=== PATIENT | female | born 1995 | race American Indian/Alaskan Native ===

== ENCOUNTER 2018-12-31 18:50 | Outpatient (CLI) | payer MEDICAID ==
[2018-12-31 19:04] VITALS: BP 100/58
[2018-12-31] MEDS ORDERED: LACTATED RINGERS 500 ML IV ONE (19:13)
[2018-12-31 20:56] LABS: Bilirubin,Urine NEG (Negative); Blood,Urine SM (Negative); Color,Urine Yellow (Yellow); Mucus,Urine 3+ /HPF; Urobilinogen,Urine < 2.0 mg/dL (<2.0)
[2018-12-31 21:23] LABS: Basophils # (Auto) 0.1 K/mm3 (0.0-0.1); Basophils % (Auto) 0.7 % (0.0-1.8); Eosinophils # (Auto) 0.1 K/mm3 (0.0-0.4); Eosinophils % (Auto) 0.5 % (0.0-4.3); Hematocrit 34.3 % (30.3-42.9); Hemoglobin 11.4 gm/dl (10.1-14.3); Lymphocytes # (Auto) 2.7 K/mm3 (1.2-5.4); Lymphocytes % (Auto) 24.7 % (13.4-35.0); Mean Corpuscular HGB Conc 33 % (30-34); Mean Corpuscular Volume 89 fl (79-97); Monocytes # (Auto) 0.8 K/mm3 (0.0-0.8); Platelet Count 249 K/mm3 (140-440); Red Blood Count 3.87 M/mm3 (3.65-5.03); Red Cell Distribution Width 14.1 % (13.2-15.2)
[2018-12-31] MEDS ORDERED: REGLAN IV ONE (21:44)
[2018-12-31 21:56] LABS: Albumin 3.8 g/dL (3.9-5); BUN/Creatinine Ratio 18; Blood Urea Nitrogen 9 mg/dL (7-17); Calcium 9.5 mg/dL (8.4-10.2); Hemolysis Index 142
[2018-12-31 22:40] LABS: Alanine Aminotransferase 7 units/L (7-56)
== END 2018-12-31 22:24 | disposition home or self-care (01) ==
LOC: TRG 18:50
PROVIDERS: ATTEND Obstetrics & Gynecology
DX: O21.2 Late vomiting of pregnancy (principal); Z3A.34 34 weeks gestation of pregnancy
CPT/HCPCS: 36415; 59025; 80053; 81001; 85025; 87086; 96374; J2765; J7120; 96360; 96365

== ENCOUNTER 2019-12-16 10:48 | Emergency (ER) | payer MEDICAID ==
[2019-12-16 11:08] VITALS: BP 124/69
--- NOTE | 2019-12-16 11:52 | XRay Report ---
Left ankle 4 views INDICATION: Left ankle pain following injury IMPRESSION: No acute fracture or subluxation of the left ankle is identified. Signer Name: Gm Ortiz MD Signed: 12/16/2019 11:48 AM Workstation Name: [id number]
--- NOTE | 2019-12-16 13:01 | Emergency Department Report ---
ED Extremity Problem HPI - General Chief complaint: Extremity Injury, Lower Stated complaint: HURT ANKLE Time Seen by Provider: 12/16/19 12:15 Source: patient Mode of arrival: Ambulatory Limitations: No Limitations - History of Present Illness Initial comments: This is a 23-year-old female with no prior medical history who presents the ED complaining of left ankle pain status post getting out of the car the wrong way and twisting it. Patient states this incident happened yesterday. She was getting out of the car and and twisted her left ankle the wrong way. Patient states she has had pain and swelling to the left ankle. MD Complaint: joint swelling, joint paint -: Last night Location: left, lower extremity (ankle) History of Same: No -: Yes arthralgia Radiation: none Quality: aching, constant Improves with: immobilization - Related Data Previous Rx's Medication Instructions Recorded Last Taken Type Promethazine [Phenergan] 25 mg PO Q6H PRN #20 tablet 10/10/13 Unknown Rx Naproxen [Naprosyn TAB] 500 mg PO BID #30 tablet 12/16/19 Unknown Rx Allergies Allergy/AdvReac Type Severity Reaction Status Date / Time No Known Allergies Allergy Verified 09/15/18 18:44 ED Review of Systems ROS: Stated complaint: HURT ANKLE Other details as noted in HPI Comment: All other systems reviewed and negative ED Past Medical Hx - Past Medical History Hx Hypertension: No Hx Diabetes: No Hx Deep Vein Thrombosis: No Hx Renal Disease: No Hx Sickle Cell Disease: No Hx Seizures: No Hx Asthma: No Hx HIV: No Additional medical history: vaginal [id number] - Social History Smoking Status: Never Smoker - Medications Home Medications: Home Medications Medication Instructions Recorded Confirmed Last Taken Type Promethazine [Phenergan] 25 mg PO Q6H PRN #20 tablet 10/10/13 Unknown Rx Naproxen [Naprosyn TAB] 500 mg PO BID #30 tablet 12/16/19 Unknown Rx ED Physical Exam - General Limitations: No Limitations General appearance: alert, in no apparent distress - Head Head exam: Present: atraumatic, normocephalic - Eye Eye exam: Present: normal appearance - ENT ENT exam: Present: mucous membranes moist - Neck Neck exam: Present: normal inspection - Respiratory Respiratory exam: Present: normal lung sounds bilaterally. Absent: respiratory distress - Cardiovascular Cardiovascular Exam: Present: regular rate, normal rhythm. Absent: systolic murmur, diastolic murmur, rubs, gallop - GI/Abdominal GI/Abdominal exam: Present: soft, normal bowel sounds - Extremities Exam Extremities exam: Present: normal inspection, tenderness (To palpation of the left ankle, minimal swelling noted), normal capillary refill, joint swelling - Back Exam Back exam: Present: normal inspection - Neurological Exam Neurological exam: Present: alert, oriented X3 - Psychiatric Psychiatric exam: Present: normal affect, normal mood - Skin Skin exam: Present: warm, dry, intact, normal color. Absent: rash ED Course Vital Signs 12/16/19 11:06 Temperature 98.6 F Pulse Rate 94 H Respiratory 16 Rate Blood Pressure 124/69 O2 Sat by Pulse 99 Oximetry ED Medical Decision Making - Radiology Data Radiology results: report reviewed XRay Report Signed Patient: KASEY JUNE MR#: [id number] : 1995 Acct:[id number] Age/Sex: 23 / F ADM Date: 12/16/19 Loc: ED Attending Dr: Ordering Physician: BETTY RUBY MD Date of Service: 12/16/19 Procedure(s): XR ankle 3+V LT Accession Number(s): [id number] cc: ED MD FLORI Fluoro Time In Minutes: Left ankle 4 views INDICATION: Left ankle pain following injury IMPRESSION: No acute fracture or subluxation of the left ankle is identified. Signer Name: Gm Ortiz MD Signed: 12/16/2019 11:48 AM Workstation Name: [id number] Transcribed By: BC Dictated By: Gm Ortiz MD Electronically Authenticated By: Gm Ortiz MD Signed Date/Time: 12/16/19 1148 - Medical Decision Making 23-year-old female presents to ED with left ankle sprain/strain ED course: Patient received Griffin for pain in ED. X-ray shows no acute fractures or dislocation. Discussed findings with the patient. Patient left ankle was wrapped in Mirza bandage and crutches given Vital signs are normal patient is in no acute distress Discussed with patient follow-up with primary care physician. Discussed the patient and take medications as prescribed. Patient has no neurological deficit. Patient is alert and oriented 3 and understands all instructions given. Discussed drowsiness effect of Flexeril makes her drowsy and not to operate machinery while taking flexeril Critical care attestation.: If time is entered above; I have spent that time in minutes in the direct care of this critically ill patient, excluding procedure time. ED Disposition Clinical Impression: Left ankle sprain, Arthralgia of ankle, left Disposition: DC- TO HOME OR SELFCARE Is pt being admited?: No Does the pt Need Aspirin: No Condition: Stable Instructions: Arthralgia (ED), Ankle Sprain (ED), Ankle Exercises (GEN), RICE Therapy (ED) Additional Instructions: Make sure to follow up with the primary care physician as discussed. Take all your medications as you've been prescribed. If you have any worsening symptoms or develop new symptoms please return to ED immediately. Prescriptions: Naproxen [Naprosyn TAB] 500 mg PO BID #30 tablet Referrals: SAMM JOHN MD [Staff Physician] - 3-5 Days [facility] [Outside] - 3-5 Days [facility] [Outside] - 3-5 Days Forms: Work/School Release Form(ED) Time of Disposition: 13:58
[2019-12-16] MEDS ORDERED: HYDROcodone/ACETAMINOPHEN 5-325 MG TAB PO ONE (13:09)
== END 2019-12-16 14:21 | disposition home or self-care (01) ==
LOC: ED 10:48
DX: S93.402A Sprain of unspecified ligament of left ankle, initial encounter (principal); Z98.890 Other specified postprocedural states; Z79.899 Other long term (current) drug therapy; X50.1XXA Overexertion from prolonged static or awkward postures, initial encounter; Y93.89 Activity, other specified; Y92.89 Other specified places as the place of occurrence of the external cause; Y99.8 Other external cause status